=== PATIENT | male | born 1980 | race Two or more races ===

== ENCOUNTER 2017-04-24 12:54 | Emergency (ER) | payer OTHER ==
[2017-04-24] MEDS ORDERED: CEPHALEXIN 500 MG CAP PO ONE (13:53)
--- NOTE | 2017-04-24 13:53 | EDPHY ---
General Narrative: CHIEF COMPLAINT: Thumb laceration HISTORY OF PRESENT ILLNESS: Patient presents with complaints of thumb laceration. 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 This is over the distal phalanx, palmar side. Significant bleeding that stopped with pressure. Moderate to severe pain with pressure. Minimal pain at rest. No difficulty bending or straightening the finger. 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 Occurred just prior to arrival. TIME OF INJURY: 12:15 p.m. TETANUS STATUS: Up-to-date MEDICAL/SURGICAL/SOCIAL HISTORY: Hypothyroid REVIEW OF SYSTEMS: Ten systems reviewed and are negative unless otherwise noted in the HPI EXAMINATION General Appearance: Alert, no distress Head: normocephalic, atraumatic Cardiovascular: Radial pulses symmetric. Brisk cap refill in the affected thumb. Neurological: A&O, sensory symmetric, interossei strength symmetric. Skin: Warm and dry, no rash. Large area of tissue avulsion on the right thumb , distal phalanx anterolaterally with involvement of the nail. Actively bleeding but nonpulsatile. Extremities: Tenderness to the area of laceration only. Full flexion extension of the thumb retain. Full abduction,adduction and opposition of the thumb retain. DIFFERENTIAL DIAGNOSES: Including but not limited to laceration, tissue avulsion, fracture MDM: 1:52 p.m. Large tissue avulsion of the right thumb distal phalanx involving small portion of the nail. Actively bleeding but nonpulsatile. The tissue that was avulsed is at bedside but is nonviable and cyanotic. No repairable laceration. I have administered a digital block. No injury to the tendon. Proceed with irrigation , surgery foam application and x-ray. Tetanus is up-to-date. Keflex treatment commenced. 2:30 p.m. Patient re-evaluated. No active bleeding. Continue to monitor. X-ray as read by me, reveals no abnormality other than soft tissue laceration. 3:30 p.m. Patient re-evaluated. Surgeon following has now been in place for over an hour. His dressing is clean and dry. Digital block is still affective. Do feel he is stable for discharge home at this time with short course of pain medication, Keflex prophylaxis, worker's compensation follow-up and hand surgeon follow-up. We discussed ED precautions for bleeding, warmth, infection , neurovascular changes. He is comfortable this plan and discharged home stable condition. PROCEDURE: Digital Block Indication: Finger laceration Consent: Verbal Location: Right thumb Anesthesia: Lidocaine 1% plain, 0.25% Marcaine plain, 5mL Description: Base of the finger was prepped. The above was infused without difficulty in a ring block fashion. Tolerated well. Good anesthesia. Complications: None SUPERVISION: This patient was independently evaluated without direct involvement of or examination by the attending physician. - Diagnostics Imaging Results: Imaging Impressions Finger X-Ray 04/24/17 14:05 Impression: Soft tissue injury right thumb, without evidence for acute fracture. - History Smoking Status: Former smoker - Objective Vital Signs: Initial Vital Signs Temperature (C) 98.2 F 04/24/17 12:56 Heart Rate 83 04/24/17 12:56 Respiratory Rate 20 04/24/17 12:56 Blood Pressure 153/91 H 04/24/17 12:56 O2 Sat (%) 92 04/24/17 12:56 O2 Delivery Mode Room Air Allergies/Adverse Reactions: Penicillins Allergy (Unknown, Verified 04/24/17 12:56) Home Medications: Medication Instructions Recorded Blood Pressure Medicine 10/16/14 Thyroid Medicine 10/16/14 Cephalexin [Keflex (*)] 500 mg PO QID #28 cap 04/24/17 oxyCODONE HCL/ACETAMINOPHEN 1 each PO Q4-6PRN PRN #13 tablet 04/24/17 [Percocet 5-325 mg Tablet] Medications Given: Discontinued Medications Cephalexin HCl (Keflex) 500 mg PO EDNOW ONE PRN Reason: Protocol Stop: 04/24/17 13:54 Last Admin: 04/24/17 13:56 Dose: 500 mg Departure - Departure Disposition: Home, Routine, Self-Care Clinical Impression: Avulsion of soft tissue Thumb laceration Qualifiers: Encounter type: initial encounter Damage to nail status: with damage Foreign body presence: without foreign body Laterality: right Qualified Code(s): S61.111A - Laceration without foreign body of right thumb with damage to nail, initial encounter Condition: Good Instructions: Finger Laceration (ED), Skin Avulsion (ED) Additional Instructions: 1. Pain medication as prescribed as needed 2. Keflex prophylaxis as prescribed to completion 3. Worker's compensation follow-up 4. Follow up with hand surgeon for definitive care 5. ED precautions as discussed Referrals: Ahmet,Erinn A, MD [Medical Doctor] - As per Instructions Stand Alone Forms: Work Comp Follow Up, Work Excuse Prescriptions: Cephalexin [Keflex (*)] 500 mg PO QID #28 cap oxyCODONE HCL/ACETAMINOPHEN [Percocet 5-325 mg Tablet] 1 each PO Q4-6PRN PRN # 13 tablet PRN Reason: Pain, Breakthrough Print Language: Surinamese
[2017-04-24 16:02] VITALS: BP 136/88; PULSE 66; RESP 18; TEMP 98.6; O2SAT 96
== END 2017-04-24 16:02 | disposition home or self-care (01) ==
PROC: 3E0T3BZ Introduction of Anesthetic Agent into Peripheral Nerves and Plexi, Percutaneous Approach (ICD-10-PCS; principal; 2017-04-24)
DX: S61.111A Laceration without foreign body of right thumb with damage to nail, initial encounter (principal); Z87.891 Personal history of nicotine dependence; W29.0XXA Contact with powered kitchen appliance, initial encounter; Y92.89 Other specified places as the place of occurrence of the external cause; Y99.0 Civilian activity done for income or pay; Y93.89 Activity, other specified